=== PATIENT | female | born 1940 | race Caucasian/White ===

== ENCOUNTER → 2018-10-23 | Outpatient (REF) | payer MEDICARE ==
[~2018-10-23] MED LIST: BACLOFEN10 MG PO; CALCIUM500 M4 PO; CENTRUM SILVER PO; FOLIC ACID1 MG PO; GABAPENTIN300 M2 PO; MAGNESIUM400 MG PO; PEPCID20 MG PO; PRAVASTATIN SOD20 MG PO; PROLIA60 MG/ML SC; STOOL SOFTE1 PO; [UNRECOGNIZED DRUG - OTHER] PO
== END | disposition home or self-care (01) ==
LOC: DI 09:21
PROVIDERS: ATTEND Physician Assistant Medical
DX: R06.2 Wheezing (principal)

== ENCOUNTER 2021-01-02 14:48 | Emergency (ER) | payer MEDICARE ==
[~2021-01-02 14:48] MED LIST changes: +KEFLEX500 M1 PO
[2021-01-02 15:57] LABS: HEMATOCRIT 46.6 % (37.0-47.0); HEMOGLOBIN 14.3 g/dl (12.0-16.0); IMMATURE GRANULOCYTES 0.4 % (0.0-5.0); MEAN CELL VOLUME 91.2 fL CALC (80.0-100.0); MEAN CORPUSCULAR HGB CONC 30.7 g/dL CAL (32.0-36.0); NEUT# 8.31 thou/uL (2.00-7.15); RED BLOOD COUNT 5.11 mill/uL (4.20-5.60); RED CELL DISTRI WIDTH 13.7 % (11.5-15.5)
[2021-01-02 16:18] LABS: ALKALINE PHOSPHATASE 72 u/l (38-126); AMYLASE 111 u/l (30-110); ANION GAP 11 (6-22 (CALC)); BILIRUBIN, TOTAL 0.7 mg/dL (0.0-1.4); BUN 13 mg/dL (8-23); BUN/CREATININE RATIO 19 (12-20 (CALC)); CARBON DIOXIDE 27 mmol/l (22-30); CHLORIDE 101 mmol/l (95-108); CREATININE 0.7 mg/dL (0.5-1.0); GFR > 60 ML/MIN (>=60 (CALC)); GFR FOR AFR.AMER. > 60 ML/MIN (>=60 (CALC)); LIPASE 307 u/l (23-300); POTASSIUM 4.3 mmol/l (3.5-5.1); SGOT/AST 30 u/l (9-36); SODIUM 135 mmol/l (137-146)
[2021-01-02] MEDS ORDERED: CALTRATE 600 PO (16:18)
[2021-01-02 16:27] LABS: ACT PARTIAL THROMBO TIME 24.7 SECONDS (20.0-32.5); PROTHROMBIN TIME 10.3 SECONDS (9.0-12.5)
[2021-01-02 16:28] LABS: ALBUMIN 4.8 g/dL (3.2-5.0); TOTAL PROTEIN 8.1 g/dL (6.3-8.2)
[2021-01-02 18:55] LABS: URINE BILIRUBIN - DIPSTICK NEGATIVE (NEGATIVE); URINE BLOOD DIPSTICK SMALL (NEGATIVE); URINE COLOR YELLOW; URINE GLUCOSE - DIPSTICK NEGATIVE (NEGATIVE); URINE KETONE 40 mg/dL (NEGATIVE); URINE LEUK ESTERASE NEGATIVE (NEGATIVE); URINE PROTEIN - DIPSTICK NEGATIVE (NEG-TRACE); URINE UROBILINOGEN - DIPSTICK 0.2 E.U./dL (0.2)
[2021-01-02 18:59] LABS: URINE NITRITE - DIPSTICK NEGATIVE (Negative)
[2021-01-02 19:00] VITALS: BP 121/58
[2021-01-02 19:15] LABS: URINE SQUAMOUS EPITHELIAL CELL FEW EPI/hpf (0-FEW)
== END 2021-01-02 19:00 | disposition short-term general hospital (02) ==
LOC: ED 14:48
DX: K35.80 Unspecified acute appendicitis (principal); G35 Multiple sclerosis; E78.5 Hyperlipidemia, unspecified; Z20.822 Contact with and (suspected) exposure to COVID-19
CPT/HCPCS: Q9967

== ENCOUNTER 2022-01-07 08:52 | Emergency (ER) | payer MEDICARE ==
[~2022-01-07] VITALS: Ht 154.9 cm; Wt 63.7 kg
[~2022-01-07 08:52] MED LIST changes: +CALTRATE 600 PO
[2022-01-07 09:12] VITALS: BP 137/71
[2022-01-07 09:35] LABS: HEMATOCRIT 46.3 % (37.0-47.0); HEMOGLOBIN 14.5 g/dl (12.0-16.0); IMMATURE GRANULOCYTES 0.2 % (0.0-5.0); MEAN CELL VOLUME 91.7 fL CALC (80.0-100.0); MEAN CORPUSCULAR HGB 28.7 pG CALC (26.0-32.0); MEAN CORPUSCULAR HGB CONC 31.3 g/dL CAL (32.0-36.0); NEUT# 6.87 thou/uL (2.00-7.15); RED BLOOD COUNT 5.05 mill/uL (4.20-5.60); RED CELL DISTRI WIDTH 13.4 % (11.5-15.5)
[2022-01-07 10:03] LABS: ALBUMIN 3.9 g/dL (3.2-5.0); ALKALINE PHOSPHATASE 92 u/l (38-126); ANION GAP 13 (6-22 (CALC)); BILIRUBIN, TOTAL 0.4 mg/dL (0.0-1.4); BUN 16 mg/dL (8-23); BUN/CREATININE RATIO 25 (12-20 (CALC)); CARBON DIOXIDE 24 mmol/l (22-30); CHLORIDE 103 mmol/l (95-108); CREATININE 0.7 mg/dL (0.5-1.0); GFR > 60 ML/MIN (>=60 (CALC)); GFR FOR AFR.AMER. > 60 ML/MIN (>=60 (CALC)); LIPASE 99 u/l (23-300); SODIUM 136 mmol/l (137-146); TOTAL PROTEIN 6.8 g/dL (6.3-8.2)
[2022-01-07 10:03] LABS: URINE BLOOD DIPSTICK SMALL (NEGATIVE); URINE COLOR YELLOW; URINE GLUCOSE - DIPSTICK NEGATIVE (NEGATIVE); URINE KETONE >=80 mg/dL (NEGATIVE); URINE LEUK ESTERASE NEGATIVE (NEGATIVE); URINE PROTEIN - DIPSTICK NEGATIVE (NEG-TRACE); URINE SPECIFIC GRAVITY >=1.030; URINE UROBILINOGEN - DIPSTICK 0.2 E.U./dL (0.2)
[2022-01-07 10:08] LABS: URINE BILIRUBIN - DIPSTICK NEGATIVE (NEGATIVE); URINE NITRITE - DIPSTICK NEGATIVE (Negative)
[2022-01-07 10:09] LABS: SGOT/AST 60 u/l (9-36)
[2022-01-07 10:17] LABS: URINE RBC 0-2 RBC/hpf (0-5)
[2022-01-07] MEDS ORDERED: ZOFRAN4 MG/TAB PO (14:31)
== END 2022-01-07 15:00 | disposition home or self-care (01) ==
LOC: ED 08:52
PROVIDERS: Internal Medicine
DX: R10.13 Epigastric pain (principal); R11.10 Vomiting, unspecified; R19.7 Diarrhea, unspecified; G35 Multiple sclerosis; E78.5 Hyperlipidemia, unspecified
CPT/HCPCS: Q9967

== ENCOUNTER 2022-03-28 07:56 | Day surgery (SDC) | payer MEDICARE ==
[~2022-03-28] VITALS: Ht 154.9 cm; Wt 63.0 kg
[~2022-03-28 07:56] MED LIST changes: +CALCIUM 600 +600 MG PO; +ZOFRAN4 MG/TAB PO
[2022-03-28] MEDS ORDERED: PERCOCET 5/321 COMBO PO (10:25)
[2022-03-28] MEDS ORDERED: ONDANSETRON4 MG PO (10:26)
[2022-03-28 12:26] VITALS: BP 98/60
== END 2022-03-28 12:20 | disposition home or self-care (01) ==
LOC: ORM 07:56
PROVIDERS: ATTEND Surgery
PROC: 0HBT0ZZ Excision of Right Breast, Open Approach (ICD-10-PCS; principal; 2022-03-28)
PROC: 07T50ZZ Resection of Right Axillary Lymphatic, Open Approach (ICD-10-PCS; 2022-03-28)
DX: C50.511 Malignant neoplasm of lower-outer quadrant of right female breast (principal); C77.3 Secondary and unspecified malignant neoplasm of axilla and upper limb lymph nodes; Z17.0 Estrogen receptor positive status [ER+]; Z85.3 Personal history of malignant neoplasm of breast
CPT/HCPCS: J0131

== ENCOUNTER 2022-05-29 21:20 | Emergency (ER) | payer MEDICARE ==
[~2022-05-29] VITALS: Ht 154.9 cm; Wt 60.0 kg
[~2022-05-29 21:20] MED LIST changes: +ONDANSETRON4 MG PO; +PERCOCET 5/321 COMBO PO
[2022-05-30 01:58] VITALS: BP 110/67
== END 2022-05-30 08:00 | disposition home or self-care (01) ==
LOC: ED 21:20
DX: R68.83 Chills (without fever) (principal); G35 Multiple sclerosis; C50.919 Malignant neoplasm of unspecified site of unspecified female breast; Z79.899 Other long term (current) drug therapy; E78.5 Hyperlipidemia, unspecified; X38.XXXA Flood, initial encounter; X37.0XXA Hurricane, initial encounter; Y92.810 Car as the place of occurrence of the external cause

== ENCOUNTER 2024-08-06 16:32 | Observation (INO) | payer MEDICARE ==
[~2024-08-06] VITALS: Ht 154.9 cm; Wt 72.5 kg
[2024-08-06] VITALS (20 sets, daily range): BP systolic 88–116; BP diastolic 49–66
[~2024-08-06 16:32] MED LIST changes: +FEMARA2.5 M1 PO
--- NOTE | 2024-08-06 16:40 | NUR ---
PT TO ROOM VIA EMS STRETCHER
[2024-08-06 17:06] LABS: BASO% 0.1 % (0-3); EOS% 1.8 % (0-8); HEMATOCRIT 40.5 % (37.0-47.0); HEMOGLOBIN 12.9 g/dl (12.0-16.0); IMMATURE GRANULOCYTES 0.2 % (0.0-5.0); LYMPH% 7.9 % (15-41); MEAN CELL VOLUME 90.4 fL CALC (80.0-100.0); MEAN CORPUSCULAR HGB 28.8 pG CALC (26.0-32.0); MEAN CORPUSCULAR HGB CONC 31.9 g/dL CAL (32.0-36.0); NEUT# 7.78 thou/uL (2.00-7.15); RED BLOOD COUNT 4.48 mill/uL (4.20-5.60); RED CELL DISTRI WIDTH 14.3 % (11.5-15.5)
--- NOTE | 2024-08-06 17:30 | NUR ---
STRAIGHT CATH COMPLETED. PATIENT TOLERATED WELL.
[2024-08-06 17:37] LABS: ALBUMIN 3.8 g/dL (3.2-5.0); BILIRUBIN, TOTAL 0.6 mg/dL (0.02-1.3); CREATININE 0.8 mg/dL (0.5-1.0); TOTAL PROTEIN 6.5 g/dL (6.3-8.2)
[2024-08-06 18:30] LABS: URINE BILIRUBIN - DIPSTICK Negative (NEGATIVE); URINE BLOOD DIPSTICK Negative (NEGATIVE); URINE COLOR Yellow; URINE GLUCOSE - DIPSTICK Negative (NEGATIVE); URINE KETONE Trace mg/dL (NEGATIVE); URINE LEUK ESTERASE Negative (NEGATIVE); URINE NITRITE - DIPSTICK Negative (Negative); URINE PROTEIN - DIPSTICK Trace mg/dL (NEG-TRACE); URINE SPECIFIC GRAVITY 1.025; URINE UROBILINOGEN - DIPSTICK 0.2 E.U./dL (0.2)
[2024-08-06] MEDS ORDERED: cefTRIAXone SODIUM 2 GM in SODIUM CHLORIDE 0.9% 100 ML IV ONE (18:50)
--- NOTE | 2024-08-06 18:57 | NUR ---
PATIENT LYING IN BED WITH NO ACUTE DISTRESS NOTED. FRIENDS AT BEDSIDE EXPRESSED PATIENT NOT BEING ABLE TO TRANSFER HERSELF AT THIS TIME. THEY FEEL IT WILL BE UNSAFE FOR HER TO RETURN HOME AT THIS TIME. PATIENT IS BEING ADMITED.
[2024-08-06] MEDS ORDERED: SODIUM CHLORIDE 0.9% 1,000 ML IV PRN (20:00)
[2024-08-06] MEDS ORDERED: MAGNESIUM HYDROXIDE 30 ML UDC PO PRN (20:00)
[2024-08-06] MEDS ORDERED: ACETAMINOPHEN 325 MG/TAB PO PRN (20:00)
--- NOTE | 2024-08-06 20:19 | NUR ---
PATIENT GIVEN A TURKE WRAP TO EAT.
--- NOTE | 2024-08-06 20:50 | NUR ---
REPORT GIVENT TO FROYLAN KAUR.
[2024-08-06] MEDS ORDERED: ENOXAPARIN SODIUM 40 MG/0.4 ML SYR SC SCH (21:00)
--- NOTE | 2024-08-06 21:12 | NUR ---
PATIENT TAKEN TO MS WITH TELE #24
[2024-08-06] MEDS ORDERED: BACLOFEN 10 MG/TAB PO SCH (22:08)
[2024-08-07] VITALS (7 sets, daily range): BP systolic 98–112; BP diastolic 51–65
--- NOTE | 2024-08-07 00:02 | NUR ---
RECEIVED REPORT FROM NURSE RD, PATIENT ALRT ORIENTED PATIENT TRANSPORTED VIA BED, ARRIVED MS UNIT AT 2058, PATIENT NOT AMBULATORY, STATED HAS MULTIPLE SCLEROSIS, AND USES ELECTRIC WHEELCAHIR AT HOME, PATINET ON TELE # 24, REDNESS NOTE ON POSTERIR THIGH WITH MEPILEX, EMS IV 18 ON LAC PATENT FLUSHES WELL, STARTED ON NS @ 100CC/HR ORDERED. CALLED SWIMMING INSTRUCTOR AT 2139 REGARDING PATINET REQUEST TO RESUME BACLOFEN, PATIENT NOT IN DISTRESS, ADMISSION ASESSMENT COMPLETD, ORIENTED TO ROOM AND CALL LIGT SYSTEM,CALL LIGHT WITHIN REACHED.
--- NOTE | 2024-08-07 04:29 | NUR ---
FLUIDS GIVEN, PATIENT OUTPUT 200CC CHING.PATIENT REPOSITIONED RESTING ON RT SIDE, CALL LIGHT IN REACHED.
--- NOTE | 2024-08-07 08:10 | NUR ---
PT LAYING IN BED RESTING WITH EYES CLOSED, AROUSES EASILY TO VERBAL STIMULI, PUPILS PERRL, RESP. EVEN AND UNLABORED, LUNG SOUNDS ARE CLEAR IN ALL OMER, ABD DISTENDED AMD SOFT WITH ACTIVE BOWEL MOVEMENTS, 20G LFA IV WITH FLUIDS INFUSING AT PRESCRIBED RATE, STRONG RADIAL PULSES AND WEAK PEDAL PULSES, SAFETY MEASURES REINFORCED, CALL ROBERTS WITHIN REACH
--- NOTE | 2024-08-07 12:00 | NUR ---
PT SITTING UP IN BED EATING LUNCH, PT SHOWS NO S/S OF DISTRESS AT THIS TIME, PT REMINDED TO CALL FOR ASSISTANCE, PT VERBALIZED UNDERSTANDING, CALL ROBERTS WITHIN REACH
[2024-08-07] MEDS ORDERED: BACLOFEN 10 MG/TAB PO PRN (13:06)
[2024-08-07] MEDS ORDERED: FOLIC ACID 1 MG/TAB PO SCH (14:30)
--- NOTE | 2024-08-07 16:00 | NUR ---
PT LAYING IN BED RESTING WITH EYES CLOSED, RESP. EVEN AND UNLABORED, NO S/S OF DISTRESS, CALL ROBERTS WITHIN REACH
--- NOTE | 2024-08-07 20:00 | NUR ---
PT IS ALERT AND ORIENTED. RESPS ARE EVEN AND UNLABORED. NO SIGNS OF DISTRESS NOTED. DENIES ANY PAIN RIGHT NOW. PUREWICK ON PLACE EMPTIED WITH 310 CC OF CLEAR YELLOW URINE. 18 G IV SITE APPEARS CLEAN, HEALTHY WITHPUT ANY SWELLING OR REDNESS. IVF NS INFUSING AT 100 CC-HR. TELE MONITOR ON PLACE RUNNING SR-99 AT THIS TIME. REQUESTED MILK OF MAG SINCE PT HAS NOT HAD ANY BM SINCE 08/04/2024. CLEAR LUNG SPUNDS HEARD ON AUSCULTATION. ABDOMEN IS SOFT AND NONTENDER WITH ACTIVE BOWEL SOUNDS, ENCOURAGED TO CALL FOR ASSISTANCE IN CASE IF NEEDED. CALL LIGHT IN REACH AND SAFETY IN REACH
[2024-08-08 00:13] VITALS: BP 110/55
--- NOTE | 2024-08-08 00:51 | NUR ---
PT RESTING ON BED IN SUPINE POSITION. BREATHING IS EVEN AND UNLABORED AT THIS TIME. TELE ON PLACE SHOWING SR-62 AT THIS TIME. CALL LIGHT IN REACH AND SAFETYPRECAUTIONS ON PLACE,
--- NOTE | 2024-08-08 04:20 | NUR ---
PT LAYING ON BED WITH EYES OPEN. BREATHING IS EVEN AND UNLABORED. NO DISTRESS NOTED. TELE MONITOR ON PLACE SHOWING SR-92 AT THIS TIME. CALL LIGHT IN REACH AND SAFETY PRECAUTIONS ON PLACE.
[2024-08-08 04:43] VITALS: BP 118/58
[2024-08-08 04:57] VITALS: BP 118/58
[2024-08-08 05:22] LABS: BASO% 0.4 % (0-3); EOS% 3.8 % (0-8); HEMATOCRIT 35.9 % (37.0-47.0); HEMOGLOBIN 11.4 g/dl (12.0-16.0); IMMATURE GRANULOCYTES 0.4 % (0.0-5.0); LYMPH% 26.8 % (15-41); MEAN CELL VOLUME 91.6 fL CALC (80.0-100.0); MEAN CORPUSCULAR HGB 29.1 pG CALC (26.0-32.0); MEAN CORPUSCULAR HGB CONC 31.8 g/dL CAL (32.0-36.0); MONO% 7.8 % (2-13); NEUT# 2.88 thou/uL (2.00-7.15); NEUT% 60.8 % (42-76); RED BLOOD COUNT 3.92 mill/uL (4.20-5.60); RED CELL DISTRI WIDTH 14.4 % (11.5-15.5)
[2024-08-08 05:31] LABS: CREATININE 0.7 mg/dL (0.5-1.0); MAGNESIUM 2.1 mg/dL (1.6-2.3); POTASSIUM 3.9 mmol/l (3.5-5.1); TOTAL PROTEIN 5.2 g/dL (6.3-8.2)
[2024-08-08 05:35] LABS: ALBUMIN 2.7 g/dL (3.2-5.0); BILIRUBIN, TOTAL 0.3 mg/dL (0.02-1.3)
[2024-08-08 07:28] VITALS: BP 129/57
--- NOTE | 2024-08-08 07:30 | NUR ---
SHIFT CHANGE REPORT, PT AWAKE ALERT AND ORIENTED RESTING IN BED, ASSISTED WITH TOILETTING, INO-CARE AND SPONGE BATH AT THIS TIME, REQUESTING STOOL SOFTNER, MUCH STOOL IN RECTUM BUT SHE IS UNABLE TO EXPEL IT, WAITING FOR MD TO ROUND AND GIVE ORDERS TO TREAT CONDITION. IVF INFUSING, TELE MONITOR IN PLACE, CALL ROBERTS IN REACH AND BED LOCKED IN LOWEST POSITION.
[2024-08-08 10:57] VITALS: BP 123/60
[2024-08-08] MEDS ORDERED: BISACODYL 10 MG SUPP RE SCH (11:30)
--- NOTE | 2024-08-08 11:40 | NUR ---
SUPPOSITORY GIVEN, POSITIVE RESULTS ALREADY.
[2024-08-08] MEDS ORDERED: CEFUROXIME500 MG PO (12:50)
--- NOTE | 2024-08-08 14:42 | NUR ---
Discharge instructions given. Patient verbalizes understanding of same. Discharged in condition via Medical Transport to Home with *Other. All belongings sent with pt.
--- NOTE | 2024-08-12 10:19 | NUR ---
Discharge follow up call completed 08/12/24. Pt states she is doing fairly well but still experiencing urinary frequency and urgency. Patient is taking prescribed medicationa as directed. Pt had a tele-health visit with her PCP yesterday. Pt expressed disire for Home Health services. Encouraged patient to contact her physician today and ask for a Home Health consult. No other needs or concerns verbalized at this time.
== END 2024-08-08 14:14 | disposition home or self-care (01) ==
LOC: ED 16:32 → ED-I 18:35 → ED 19:01 → MS2 19:02
PROVIDERS: Family Medicine; Internal Medicine; ADMIT Internal Medicine; ATTEND Internal Medicine
DX: N30.00 Acute cystitis without hematuria (principal); G35 Multiple sclerosis; E78.5 Hyperlipidemia, unspecified; Z87.440 Personal history of urinary (tract) infections
CPT/HCPCS: G0378; J0696; J1650